=== PATIENT | male | born 1990 | race Caucasian/White ===

== ENCOUNTER 2017-05-20 23:04 | Emergency (ER) | payer OTHER ==
--- NOTE | 2017-05-20 23:36 | NUR ---
CALLED FOR TRIAGE; NO ANSWER
--- NOTE | 2017-05-20 23:40 | NUR ---
CALLED AGAIN; NO ANSWER AND NOT IN LOBBY
--- NOTE | 2017-05-20 23:44 | NUR ---
CALLED AGAIN; NO ANSWER. INFORMED "PT LEFT"
== END 2017-05-20 23:45 | disposition left against medical advice (07) ==
LOC: ER 23:04
DX: Z53.21 Procedure and treatment not carried out due to patient leaving prior to being seen by health care provider (principal)
CPT/HCPCS: A4606; Z7610

== ENCOUNTER 2021-12-15 04:26 | Emergency (ER) | payer MEDICAID, OTHER ==
[~2021-12-15] VITALS: Ht 182.9 cm; Wt 70.3 kg
[2021-12-15] MEDS: TETRACAINE HCL 0.5% OPHTALMIC 15 ML BOTTLE OP ONE (04:53)
[2021-12-15] MEDS ORDERED: CIPR2.5D14 LEFTEYE (05:06)
[2021-12-15 05:09] VITALS: BP 133/76
--- NOTE | 2021-12-15 05:09 | NUR ---
Patient does not wish to proceed with medical care recommended by Dr. aleman. Patient given information related to possible complications, up to and including , which could occur as a result of leaving the hospital at this time. Patient verbalizes understanding of risks involved due to leaving against medical advice. Patient has signed AMA form.
== END 2021-12-15 05:10 | disposition left against medical advice (07) ==
LOC: ER 04:36
DX: H10.9 Unspecified conjunctivitis (principal); F17.200 Nicotine dependence, unspecified, uncomplicated; Z60.2 Problems related to living alone; Z79.899 Other long term (current) drug therapy